=== PATIENT | male | born 1950 | race African-American/Black ===

== ENCOUNTER 2024-12-11 13:38 | Inpatient (IN) | payer OTHER ==
[2024-12-11 15:23] LABS: ABSOLUTE IMMATURE GRANULOCYTES 0.05 x10^3/uL (0.0-0.031); BASOPHILS # 0.03 x10^3/uL (0.01-0.08); EOSINOPHIL % 0.5 % (0.8-7.0); EOSINOPHILS # 0.05 x10^3/uL (0.04-0.54); MCHC 33.2 g/dl (32.3-36.5); MEAN CELL VOLUME 95.0 fl (79.0-92.2); MEAN PLT VOLUME 12.1 fl (9.4-12.4); MONOCYTE # 0.73 x10^3/uL (0.30-0.82); MONOCYTE % 6.7 % (5.3-12.2); RDW 13.8 % (12.2-16.6)
[2024-12-11 15:43] LABS: CO2 26.0 mmol/L (21-32); GLUCOSE,RANDOM 184.0 mg/dL (74-106)
[2024-12-11 15:47] LABS: CREATININE 2.0 mg/dL (0.55-1.3); SGOT/AST 35.0 U/L (15-37); SGPT/ALT 26.0 U/L (13-61)
[2024-12-11 15:49] LABS: TOT PROT 7.8 g/dl (6.4-8.2)
[2024-12-11 15:50] LABS: ALK PHOS 68.0 U/L (45-117)
[2024-12-11] MEDS: SODIUM CHLORIDE 0.9% 500 ML INFUS.BAG IV ONE (16:17)
[2024-12-11] MEDS ORDERED: METOPROLOL TARTRATE 5 MG/5 ML VIAL ONE ×2 (19:07→19:30)
[2024-12-11] MEDS: METOPROLOL TARTRATE 5 MG/5 ML VIAL IVPUSH ONE ×2 (19:12→19:32)
[2024-12-11] MEDS: SODIUM CHLORIDE 1,000 ML IV STA (19:49)
[2024-12-11 20:25] LABS: HIV INTERPRETATION NEGATIVE (NEGATIVE)
[2024-12-11] MEDS: LACTATED RINGERS SOLUTION 1,000 ML/1,000 ML INFUS.BAG IV SCH (20:41)
[2024-12-11 21:35] LABS: HCV DIAGNOSTIC IN-HOUSE W/RFLX REACTIVE (NONREACTIVE)
[2024-12-11] MEDS: HEPARIN NA (PORCINE) 5,000 UNITS/ML 1ML VIAL SQ SCH (23:31)
[2024-12-11] MEDS: METOPROLOL TARTRATE 25 MG TABLET (FP) PO SCH (23:32)
[2024-12-11] MEDS ORDERED: HEPARIN NA (PORCINE) 5,000 UNITS/ML 1ML VIAL IVPUSH PRN ×2 (23:54)
[2024-12-12 02:24] LABS: EPI CELLS 17 /uL (0-25.1); HYALINE CASTS 2 /uL (0-3.1); URINE APPEARANCE CLEAR; URINE BACTERIA 3 /uL (0-1359); URINE BILIRUBIN 1+ (NEGATIVE); URINE COLOR DK YELLOW; URINE GLUCOSE (UA) NEGATIVE (NEGATIVE); URINE KETONE TRACE (NEGATIVE); URINE LEUK ESTERASE TRACE (NEGATIVE); URINE NITRITE NEGATIVE (NEGATIVE); URINE PROTEIN NEGATIVE (NEGATIVE); URINE RBC 35 /uL (0-23.9); URINE UROBILINOGEN 2.0 mg/dL (0.2-1.0); URINE WBC 20 /uL (0-25.8)
[2024-12-12] MEDS: HEPARIN - 25,000 UNIT in SODIUM CHLORIDE 495 ML IV SCH (02:42)
[2024-12-12] MEDS: APIXABAN 5 MG TABLET PO SCH (03:39)
[2024-12-12] MEDS ORDERED: HEPARIN NA (PORCINE) 5,000 UNITS/ML 1ML VIAL SQ SCH (06:00)
[2024-12-12 07:04] VITALS: BMI 22.2
[2024-12-12 09:15] LABS: IMMATURE PLATELET FRACTION # 11.60 x10^3/uL; MCHC 32.0 g/dl (32.3-36.5); MEAN CELL VOLUME 97.2 fl (79.0-92.2); MEAN PLT VOLUME 11.4 fl (9.4-12.4); RDW 13.8 % (12.2-16.6)
[2024-12-12 10:06] LABS: CO2 27.0 mmol/L (21-32); GLUCOSE,RANDOM 109.0 mg/dL (74-106)
[2024-12-12 10:10] LABS: CREATININE 1.1 mg/dL (0.55-1.3)
[2024-12-12 11:34] LABS: LACTIC ACID 5.1 mmol/L (0.4-2.0)
[2024-12-12] MEDS ORDERED: LACTATED RINGERS SOLUTION 1,000 ML/1,000 ML INFUS.BAG IV SCH (12:12)
[2024-12-12] MEDS: SODIUM CHLORIDE 1,000 ML IV STA (12:28)
[2024-12-12] MEDS: SODIUM CHLORIDE 1,000 ML IV SCH (14:12)
[2024-12-13] MEDS: CEFTRIAXONE 1 GM in DEXTROSE 5%-WATER - 50 ML IVPB SCH (09:17)
[2024-12-13] MEDS ORDERED: CEFTRIAXONE 1 GM in DEXTROSE 5%-WATER - 50 ML IVPB SCH (10:00)
[2024-12-13 11:04] LABS: ABSOLUTE IMMATURE GRANULOCYTES 0.03 x10^3/uL (0.0-0.031); BASOPHILS # 0.02 x10^3/uL (0.01-0.08); MONOCYTE % 5.5 % (5.3-12.2); RDW 13.4 % (12.2-16.6)
[2024-12-13 11:06] LABS: EOSINOPHIL % 2.2 % (0.8-7.0); EOSINOPHILS # 0.21 x10^3/uL (0.04-0.54); MCHC 31.6 g/dl (32.3-36.5); MEAN CELL VOLUME 96.7 fl (79.0-92.2); MONOCYTE # 0.53 x10^3/uL (0.30-0.82)
[2024-12-13 11:43] LABS: LACTIC ACID 2.4 mmol/L (0.4-2.0)
[2024-12-13 12:37] LABS: MEAN PLT VOLUME 11.5 fl (9.4-12.4)
[2024-12-13 16:25] LABS: CO2 23.0 mmol/L (21-32); GLUCOSE,RANDOM 106.0 mg/dL (74-106)
[2024-12-13 16:28] LABS: CREATININE 0.8 mg/dL (0.55-1.3); SGOT/AST 23.0 U/L (15-37); SGPT/ALT 18.0 U/L (13-61)
[2024-12-13 16:32] LABS: ALK PHOS 47.0 U/L (45-117)
[2024-12-13 16:33] LABS: TOT PROT 5.1 g/dl (6.4-8.2)
[2024-12-13] MEDS: NICOTINE 14 MG/24 HOURS TOPICAL PATCH TD SCH (17:23)
[2024-12-14 08:26] LABS: RDW 13.2 % (12.2-16.6)
[2024-12-14 08:28] LABS: IMMATURE PLATELET FRACTION # 13.60 x10^3/uL; MCHC 33.4 g/dl (32.3-36.5); MEAN CELL VOLUME 93.4 fl (79.0-92.2); MEAN PLT VOLUME 11.7 fl (9.4-12.4)
[2024-12-14 08:49] LABS: CO2 22.0 mmol/L (21-32)
[2024-12-14 08:50] LABS: GLUCOSE,RANDOM 90.0 mg/dL (74-106)
[2024-12-14 08:52] LABS: ALK PHOS 51.0 U/L (45-117); CREATININE 0.7 mg/dL (0.55-1.3); SGOT/AST 24.0 U/L (15-37); SGPT/ALT 21.0 U/L (13-61)
[2024-12-14 08:54] LABS: TOT PROT 5.5 g/dl (6.4-8.2)
[2024-12-14] MEDS ORDERED: POTASSIUM CHLORIDE ORAL LIQUID 20 MEQ/15 ML PO ONE (10:44)
[2024-12-15] MEDS: ASCORBIC ACID 250 MG TABLET (FP) PO SCH (10:52)
[2024-12-15] MEDS: MULTIVITAMINS (DAILY MVI) TABLET (FP) PO SCH (10:52)
[2024-12-15] MEDS: ACETAMINOPHEN 325 MG TABLET (FP) PO PRN (11:34)
[2024-12-16] MEDS ORDERED: ACETAMINOPHEN 325 MG TABLET (FP) PO PRN (02:26)
[2024-12-16] MEDS ORDERED: POTASSIUM CHLORIDE ORAL LIQUID 20 MEQ/15 ML PO ONE (03:30)
[2024-12-16] MEDS: POTASSIUM CHLORIDE ORAL LIQUID 20 MEQ/15 ML PO ONE (06:42)
[2024-12-16] MEDS: ASCORBIC ACID 250 MG TABLET (FP) PO SCH (09:29)
[2024-12-16] MEDS: NICOTINE 14 MG/24 HOURS TOPICAL PATCH TD SCH (09:30)
[2024-12-16] MEDS: MULTIVITAMINS (DAILY MVI) TABLET (FP) PO SCH (09:30)
[2024-12-16] MEDS: APIXABAN 5 MG TABLET PO SCH (09:30)
[2024-12-16] MEDS: METOPROLOL TARTRATE 25 MG TABLET (FP) PO SCH (09:30)
[2024-12-16] MEDS ORDERED: CEFTRIAXONE 1 GM in DEXTROSE 5%-WATER - 50 ML IVPB SCH (10:00)
[2024-12-16 12:49] LABS: MCHC 33.8 g/dl (32.3-36.5); MEAN CELL VOLUME 93.6 fl (79.0-92.2); MEAN PLT VOLUME 11.9 fl (9.4-12.4); RDW 13.7 % (12.2-16.6)
[2024-12-16 13:31] LABS: CO2 24.0 mmol/L (21-32); GLUCOSE,RANDOM 110.0 mg/dL (74-106)
[2024-12-16 13:34] LABS: CREATININE 0.6 mg/dL (0.55-1.3); SGOT/AST 33.0 U/L (15-37); SGPT/ALT 23.0 U/L (13-61)
[2024-12-16 13:36] LABS: TOT PROT 5.2 g/dl (6.4-8.2)
[2024-12-16 13:37] LABS: ALK PHOS 58.0 U/L (45-117)
[2024-12-17 08:46] LABS: URINE APPEARANCE CLEAR; URINE BILIRUBIN NEGATIVE (NEGATIVE); URINE COLOR YELLOW; URINE GLUCOSE (UA) NEGATIVE (NEGATIVE); URINE KETONE NEGATIVE (NEGATIVE); URINE LEUK ESTERASE NEGATIVE (NEGATIVE); URINE NITRITE NEGATIVE (NEGATIVE); URINE PROTEIN NEGATIVE (NEGATIVE); URINE UROBILINOGEN 1.0 mg/dL (0.2-1.0)
[2024-12-17 10:33] LABS: ABSOLUTE IMMATURE GRANULOCYTES 0.03 x10^3/uL (0.0-0.031); BASOPHILS # 0.03 x10^3/uL (0.01-0.08); EOSINOPHIL % 3.3 % (0.8-7.0); EOSINOPHILS # 0.24 x10^3/uL (0.04-0.54); MCHC 32.0 g/dl (32.3-36.5); MEAN CELL VOLUME 96.2 fl (79.0-92.2); MEAN PLT VOLUME 11.3 fl (9.4-12.4); MONOCYTE # 0.72 x10^3/uL (0.30-0.82); MONOCYTE % 9.9 % (5.3-12.2); RDW 13.7 % (12.2-16.6)
[2024-12-17 10:51] LABS: CO2 29.0 mmol/L (21-32); GLUCOSE,RANDOM 94.0 mg/dL (74-106)
[2024-12-17 10:54] LABS: CREATININE 0.6 mg/dL (0.55-1.3)
[2024-12-17 15:00] VITALS: BP 145/88; PULSE 61; RESP 18; TEMP 97.9
== END 2024-12-17 18:13 | DRG 640 ==
LOC: JER 13:38 → JERBED 17:52 → OBSVTOIN 19:49 → J4W 22:19 → J6S 12-15 20:39
PROVIDERS: ADMIT Student in an Organized Health Care Education/Training Program; ATTEND Internal Medicine
DX: E86.0 Dehydration (principal); G93.41 Metabolic encephalopathy; N17.9 Acute kidney failure, unspecified; I45.2 Bifascicular block; Z59.19 Other inadequate housing; I24.89 Other forms of acute ischemic heart disease; R65.10 Systemic inflammatory response syndrome (SIRS) of non-infectious origin without acute organ dysfunction; E87.0 Hyperosmolality and hypernatremia; R62.7 Adult failure to thrive; I48.91 Unspecified atrial fibrillation; L89.152 Pressure ulcer of sacral region, stage 2; T68.XXXA Hypothermia, initial encounter; X58.XXXA Exposure to other specified factors, initial encounter; Y93.9 Activity, unspecified; Y92.89 Other specified places as the place of occurrence of the external cause; Y99.9 Unspecified external cause status
CPT/HCPCS: 36415; 70450-TC; 70551-TC; 71045-TC-FY; 74177-TC; 75635-TC; 80048; 80053; 81003; 82550; 82607; 82962; 83605; 83735; 84100; 84443; 84484; 85025; 85027; 85730; 86803; 87040; 87086; 87389; 87522; 93005; 93010; 93306-TC; 93922; 93925-TC; 97116-GP; 97162-GP; 99285-25; G0378; Q9967